=== PATIENT | female | born 1990 | race African-American/Black ===

== ENCOUNTER → 2017-12-14 | Outpatient (CLI) | payer OTHER ==
--- NOTE | 2017-12-14 17:13 | KCIC ---
HYSTEROSONOGRAPHY Clinical indications: Menorrhagia. Thickened endometrium. Procedure: The procedure and possible complications including bleeding and infection were explained to the patient. The test is negative. The patient provided both verbal and written consent. Using sterile technique, a vaginal speculum was inserted and the external cervical os was identified and cleansed with Betadine. Subsequently, using sterile technique, a balloon catheter was inserted into the endometrial cavity. The balloon was inflated with sterile normal saline. Subsequently, the transvaginal sonographic probe was inserted. A total of 20 cc of sterile normal saline was injected and multiple sonographic spot hysterosonography images were taken. The balloon was deflated and an additional spot hysterosonography images were taken. The catheter and vaginal probe were removed. The patient tolerated the procedure well without complication. The patient was instructed to go to the emergency room if she developed new onset of abdominal pain or fever/chills or vaginal bleeding. Findings: Transabdominal sonography of the pelvis was performed prior to the procedure. Uterine fibroid was identified. Both ovaries appeared normal and demonstrated color Doppler flow. No abnormal wall thickening of the endometrial lining is seen. Overall thickness measures 6.6 mm. No endometrial polyp or endometrial mass or hyperplasia is evident. There is a prominent right lateral uterine myometrial fibroid involving the upper aspect of the uterus which does extend to the submucosal edge. However it does not extend into the endometrial cavity. This fibroid measures 4.7 cm in greatest dimension. Impression: 4.7 cm myometrial fibroid of the upper right aspect of the uterus which does extend to the submucosal edge but not into the endometrial cavity. Electronically signed by: Yusef Fox MD (12/14/2017 5:09 PM) [facility]
== END | disposition home or self-care (01) ==
LOC: KCIC US 10:26
PROVIDERS: ATTEND Obstetrics & Gynecology
DX: D25.9 Leiomyoma of uterus, unspecified (principal)
CPT/HCPCS: 76831